=== PATIENT | female | born 1965 | race Caucasian/White ===

== ENCOUNTER 2016-11-06 19:46 | Emergency (ER) | payer OTHER ==
[2016-11-06 20:00] VITALS: BP 118/67
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
[2016-11-06] MEDS ORDERED: FLEXERIL PO ONE (21:50)
[2016-11-06] MEDS ORDERED: ROBAXIN PO ONE (21:54)
--- NOTE | 2016-11-07 09:38 | Diag Imaging Result Document ---
PROCEDURE NAME: CHEST-2 VIEWS - 11/06/2016 TWO VIEWS OF THE CHEST: FINDINGS: There is no evidence of acute cardiac or pulmonary disease. Compared to 07/31/2016, there is much better inspiration. IMPRESSION: No acute disease.
--- NOTE | 2016-11-07 09:39 | Diag Imaging Result Document ---
PROCEDURE NAME: SHOULDER-LEFT - 11/06/2016 LEFT SHOULDER, 3 VIEWS: FINDINGS: There is no evidence of fracture or dislocation. No other definite bony abnormalities are present. IMPRESSION: No acute disease.
--- NOTE | 2016-11-07 10:27 | Diag Imaging Result Document ---
PROCEDURE NAME: HEAD/C-SPINE W/O CONTRAST - 11/06/2016 CT OF THE HEAD WITHOUT CONTRAST: FINDINGS: There are calcifications in the internal carotid arteries bilaterally. There is no evidence of mass effect, bleed, or abnormal extra-axial fluid collection. Compared to the previous study of 04/10/2014, there has been no significant change in the appearance of the brain. IMPRESSION: Stable CT of the head. CT OF THE CERVICAL SPINE: FINDINGS: There is no evidence of acute fracture or subluxation. No acute abnormalities are demonstrated in the lung apices. There is no evidence of prevertebral soft tissue swelling, fracture, or subluxation, and the facets are well aligned bilaterally. IMPRESSION: No evidence of acute disease.
--- NOTE | 2016-11-07 10:28 | Diag Imaging Result Document ---
PROCEDURE NAME: LUMBAR SPINE W/O CONTRAST - 11/06/2016 CT OF THE LUMBAR SPINE: FINDINGS: There is degenerative disk disease at T9-10 with anterior osteophyte formation and particularly at the L5-S1 level where there is sclerosis of both endplate regions extending to the mid body of L5 and vacuum disk phenomenon with [id number] contact, posteriorly. There is also degenerative disease in the sacroiliac joints bilaterally. There is disk bulge at the L4-5 level. IMPRESSION: Degenerative disk changes and sacroiliac arthropathy. No evidence of acute bony disease.
== END 2016-11-06 22:03 | disposition home or self-care (01) ==
LOC: P.ED 19:46
DX: M79.1 Myalgia (principal); R51 Headache; M54.5 Low back pain; M25.512 Pain in left shoulder; R07.9 Chest pain, unspecified; R00.0 Tachycardia, unspecified; I10 Essential (primary) hypertension; K21.9 Gastro-esophageal reflux disease without esophagitis; E11.40 Type 2 diabetes mellitus with diabetic neuropathy, unspecified; Z85.820 Personal history of malignant melanoma of skin; Z72.0 Tobacco use; Z71.6 Tobacco abuse counseling; F32.9 Major depressive disorder, single episode, unspecified; M62.830 Muscle spasm of back; V43.52XA Car driver injured in collision with other type car in traffic accident, initial encounter; Z79.899 Other long term (current) drug therapy; Z79.4 Long term (current) use of insulin
CPT/HCPCS: 70450; 71020; 72125; 72131

== ENCOUNTER 2019-04-12 13:06 | Inpatient (IN) ==
[2019-04-12] MEDS ORDERED: ATIVAN IV ONE ×2 (13:14→15:48)
--- NOTE | 2019-04-12 13:19 | PROVIDER DOCUMENTATION ---
HPI-General Adult - General Chief Complaint: Low Blood Sugar Stated Complaint: hypoglycemia Time Seen by Provider: 04/12/19 13:06 Source: patient Allergies/Adverse Reactions: Patient Allergies Allergy/AdvReac Type Severity Reaction Status Date / Time levofloxacin [From Levaquin] Allergy Intermediate ITCHING Verified 04/12/19 13:52 promethazine HCl * AdvReac Intermediate AGITATION Verified 04/12/19 13:52 [From Phenergan] Home Medications: Home Medication List Medication Instructions Recorded Confirmed Last Taken Type Subcutaneous Insulin Pump [Insulin 1 each MC DIRECTED 05/19/14 06/05/18 01/30/17 19:00 History Pump] 1 EACH Losartan [Cozaar] 50 mg PO DAILY 07/31/16 06/05/18 01/30/17 19:00 History 50 MG Methocarbamol [Robaxin-750] 750 mg PO Q6-8H PRN PRN #20 tablet 11/06/16 06/05/18 01/30/17 19:00 Rx 750 MG Gabapentin 600 mg PO BID 01/31/17 06/05/18 01/30/17 19:00 History 600 MG Venlafaxine [Effexor] 75 mg PO DAILY 01/31/17 06/05/18 01/30/17 19:00 History 100 MG Acetaminophen [Tylenol] 650 mg PO Q4H PRN PRN tablet 11/20/17 06/05/18 Unknown Rx Amlodipine [Norvasc] 5 mg PO DAILY #30 tab 11/20/17 06/05/18 Unknown Rx Amoxicillin 875 mg PO Q12H #14 tab 06/08/18 Unknown Rx Doxycycline Hyclate [Morgidox] 100 mg PO Q12H #24 cap 06/08/18 Unknown Rx Pantoprazole [Protonix] 40 mg PO DAILY #60 tab 06/08/18 Unknown Rx - History of Present Illness -Gen Adult Nature of Presenting Problems: 53yof present to ER via EMS with c/o low blood sugar. According to EMS FSBS 25 initially on scene, pt was given glucagon and 1 amp D50w. Pt present to ER comba tive. FSBS 186 on arrival. Pt has insulin pump, which is now disconnected Location of Pain/Injury: reports: none - Diabetes Related Context Context: reports: low blood sugar, change in mental status Review of Systems - Adult - REVIEW OF SYSTEMS - ADULT ROS:: unobtainable per condition Constitutional: reports: no symptoms reported Eyes: reports: no symptoms reported Ears, Nose, Mouth & Throat: reports: no symptoms reported Cardiovascular: reports: no symptoms reported Respiratory: reports: no symptoms reported Gastrointestinal: reports: no symptoms reported Genitourinary: reports: no symptoms reported Musculoskeletal: reports: no symptoms reported Integumentary: reports: no symptoms reported Neurological: reports: no symptoms reported Psychiatric: reports: no symptoms reported Endocrine: reports: no symptoms reported Hematologic/Lymphatic: reports: no symptoms reported Allergic/Immunologic: reports: no symptoms reported All Other Systems: Reviewed and Negative Past History - Adult - PAST MEDICAL HISTORY-ADULT Review of Records: reports: Old Records Reviewed, Nursing Assessment Review, Medications Reviewed, Social history reviewed & non-contributory. Major Childhood Illnesses: reports: denies history Cardiovascular: reports: HTN Respiratory: reports: denies history Gastrointestinal: reports: GERD Obstetrical/Gynecological: reports: denies history Genitourinary: reports: denies history Musculoskeletal: reports: denies history Neurological: reports: other (neuropathy). denies: cancer/tumor, dementia, Franklin's Disease, meningitis, past injury Psychiatric: reports: depression Endocrine/Immune: reports: Diabetes Other Conditions: reports: other cancer (melanoma) - PRIOR SURGERIES/PROCEDURES Surgical/Procedure History: reports: appendectomy, cholecystectomy, hysterectomy , tonsillectomy, breast, other (bladder sling) - IMMUNIZATION STATUS Childhood Immunizations: See Nurse Assessment Flu Vaccine: See Nurse Assessment - FAMILY HISTORY Family History: reviewed, not pertinent Physical Exam-General - PHYSICAL EXAM-ADULT Exam Limited by: Pt combative and altered Initial Vital Signs Reviewed: Yes - CONSTITUTIONAL General Appearance: combative - EYES Eyes: PERRL/EOMI, pink conjunctivae - HEAD, EARS, NOSE, MOUTH & THROAT HENMT: other (dry mucous membranes) - NECK Neck: full range of motion, supple, normal inspection - RESPIRATORY Respiratory: lungs clear, normal breath sounds - CARDIOVASCULAR Cardiovascular: tachycardia - GASTROINTESTINAL (ABDOMEN) Abdominal Exam: normal bowel sounds, non tender, soft - MUSCULOSKELETAL Extremity: normal range of motion, normal inspection - SKIN Integumentary: normal color, warm/dry. negative: diaphoresis, ecchymosis, rash - NEUROLOGIC Neurologic: negative: facial droop - PSYCHIATRIC Psych/Mental Status: disoriented x 3, other (confused, combative) Progress - PLAN OF CARE/RESULTS Progress/Plan/Lab Results: Vital Signs - 8 hr 04/12/19 13:07 Pulse Rate 101 H Respiratory Rate 20 Blood Pressure 196/95 O2 Sat by Pulse Oximetry 96 Orders Category Date Time Status CT HEAD W/O CONTRAST [CT] Stat Exams 04/12/19 13:13 Ordered CBC WITH DIFF [HEME] Stat Lab 04/12/19 13:13 Uncollected COMPREHENSIVE METABOLIC PANEL [CHEM] Stat Lab 04/12/19 13:13 Uncollected TROPONIN T Stat Lab 04/12/19 13:[address] W/POSS RFLX CULT [URINALYSIS] Stat Lab 04/12/19 13:13 Uncollected URINE DRUG SCREEN PL Stat Lab 04/12/19 13:13 Uncollected Lorazepam [Ativan] Med 04/12/19 13:14 Discontinued 0.5 mg IV NOW ONE Result Diagrams: 04/12/19 13:30 04/12/19 13:30 - REASSESSMENT Reassessment #1 Time Reassessed: 13:20 (pt now relaxed. Will reassess patient) Reassessment #2 Time Reassessed: 13:32 (Pt still altered, slightly combative with arrousal. Will rule out other underlying causes.) Reassessment #3 Time Reassessed: 14:45 (Re-evaluated pt. Pt still very altered, unable to answer questions. Pts father at bedside now, states he saw pt at 0900 this morning and pt "seemed fine'. ) - XRAY 1 XRAY Study: Chest Impression: See EMR Report (FINDINGS: There is a suboptimal inspiratory result. Cardiomediastinal silhouette is within normal limits. The pulmonary vasculature is not congested. No infiltrate, effusion, or pneumothorax is appreciated. IMPRESSION: No acute cardiopulmonary abnormality is identified.) - CT/MRI 1 CT Study: Head Impression: See EMR Report (FINDINGS: No parenchymal hemorrhage. No epidural or subdural hematoma. No subarachnoid hemorrhage. No mass identified on this noncontrasted exam. No hydrocephalus. No skull fracture. IMPRESSION: No hemorrhage. Negative brain CT without contrast.) - CONSULTS/PCP/HOSPITALIST Notification #1 *Consult/PCP/Hospitalist*: Dr Sim Time Discussed: 15:39 Consult Disposition: Admit Departure - Departure Date of Disposition Decision: 04/12/19 Time of Disposition Decision: 15:39 DIAGNOSIS: Hypoglycemia Altered mental state Qualifiers: Altered mental status type: unspecified Qualified Code(s): R41.82 - Altered mental status, unspecified Disposition: ADMITTED INPATIENT 09 Certified Medical Emergency: Emergent Condition: Fair Referrals and Follow-Ups: None,PCP [Primary Care Provider] - - Critical Care Note This patient required my direct & personal management of CC.: No Attestation - Physician/ ASHLY Attestation Patient care was provided by Advanced Practice Provider:: Yes Advanced Practice Provider:: He Olivia Advanced Practice Provider documentation review:: The Mid-level provider documentation, treatment plan and medical decision making was reviewed by the physician who agrees with all treatment and medical decision making by the MLP. The physician spent face to face time with patient:: No Advanced Practice Provider documentation review:: Supervising physician onsite and consulted in the evaluation and care of this patient. The physician did not have a face to face encounter with the patient.
[2019-04-12] MEDS ORDERED: D50W SYRINGE IV ONE (13:22)
[2019-04-12 13:32] LABS: BILIRUBIN URINE NEGATIVE (NEGATIVE); BLOOD URINE NEGATIVE (NEGATIVE); CLARITY CLEAR (CLEAR); COLOR YELLOW; KETONE URINE NEGATIVE (NEGATIVE); LEUKOCYTES URINE NEGATIVE (NEGATIVE); NITRITE URINE NEGATIVE (NEGATIVE); PROTEIN URINE NEGATIVE (NEGATIVE); SP GRAVITY URINE 1.015; URINE BACTERIA NEGATIVE /HFP; URINE CAST NONE SEEN /LPF; URINE CRYSTAL NONE SEEN /HPF; URINE EPITHELIAL CELLS <10 /HPF (<10); URINE RBC <10 /HPF (<10); URINE SOURCE CATH; URINE WBC <10 /HPF (<10); URINE YEAST NONE SEEN /HPF; UROBILINOGEN URINE NORMAL
[2019-04-12 13:38] LABS: BASO# 0.03 X1000 (0.0-0.2); BASO% 0.5 % (0.0-0.8); EOS# 0.04 X1000 (0.0-0.7); EOS% 0.7 % (0.0-10.0); HEMATOCRIT 39.2 % (37.0-47.0); HEMOGLOBIN 13.2 g/dL (12.0-16.0); IMM GRAN# 0.01 X1000 (0.0-0.04); IMM GRAN% 0.2 % (0.0-0.5); LYMPH# 0.73 X1000 (1.2-3.4); LYMPH% 12.3 % (20.5-51.1); MCH 32.6 PG (27-31); MCHC 33.7 g/dL (33-37); MCV 96.8 FL (81-99); MONO# 0.34 X1000 (0.11-0.59); MONO% 5.7 % (1.7-9.3); MPV 10.2 FL (7.4-10.4); NEUT# 4.79 X1000 (1.4-6.5); NEUT% 80.6 % (42.2-75.2); PLT 243 X1000 (130-400); RBC 4.05 XMIL (4.2-5.4); RDW 13.7 % (11.5-14.5); WBC 5.94 X1000 (4.8-10.8)
[2019-04-12 13:41] LABS: UR AMPHETAMINES QUAL NONE DETECTED (NONE DETECT); UR BARBITUATES QUAL NONE DETECTED (NONE DETECT); UR BENZODIAZEPIN QUAL NONE DETECTED (NONE DETECT); UR CANNABINOIDS QUAL NONE DETECTED (NONE DETECT); UR COCAINE QUAL NONE DETECTED (NONE DETECT); UR METHADONE QUAL NONE DETECTED (NONE DETECT); UR METHAMPHETAMINE QUAL NONE DETECTED (NONE DETECT); UR OPIATES QUAL NONE DETECTED (NONE DETECT); UR OXYCODONE QUAL NONE DETECTED (NONE DETECT); UR PCP QUAL NONE DETECTED (NONE DETECT); UR PROPOXYPHENE QUAL NONE DETECTED (NONE DETECT); UR TCA QUAL NONE DETECTED (NONE DETECT)
[2019-04-12 13:55] LABS: AGAP 10; ALBUMIN 4.2 g/dL (3.5-5.0); ALKALINE PHOSPHATASE 159 U/L (32-104); BUN 11 mg/dL (8-22); CALCIUM 9.5 mg/dL (8.8-10.2); CHLORIDE 103 mmol/L (98-107); COSMO 287; CREATININE 0.6 mg/dL (0.5-0.9); ESTIMATED GFR > 60; GLUCOSE 250 mg/dL (70-104); GOT 24 U/L (10-30); GPT 22 U/L (10-36); POTASSIUM 4.1 mmol/L (3.5-5.1); SODIUM 140 mmol/L (136-145); TCO2 27 mmol/L (25-35); TOTAL PROTEIN 6.4 g/dL (6.3-8.3)
--- NOTE | 2019-04-12 14:04 | Diag Imaging Result Doc PS360 ---
EXAM: CT HEAD W/O CONTRAST HISTORY: aMS TECHNIQUE: CT head without contrast COMPARISON: 11/17/2017 FINDINGS: No parenchymal hemorrhage. No epidural or subdural hematoma. No subarachnoid hemorrhage. No mass identified on this noncontrasted exam. No hydrocephalus. No skull fracture. IMPRESSION: No hemorrhage. Negative brain CT without contrast. This exam was performed using automated exposure control, adjustment of mA or kV according to patient size, and/or use of iterative reconstruction technique. Electronically signed by Yandel Muñoz 04/12/2019 2:01 PM
--- NOTE | 2019-04-12 14:51 | Diag Imaging Result Doc PS360 ---
EXAM: CHEST-PORTABLE HISTORY: ams TECHNIQUE: Single view of the chest was performed portably. COMPARISON: 06/05/2018 FINDINGS: There is a suboptimal inspiratory result. Cardiomediastinal silhouette is within normal limits. The pulmonary vasculature is not congested. No infiltrate, effusion, or pneumothorax is appreciated. IMPRESSION: No acute cardiopulmonary abnormality is identified. Electronically signed by Gayathri Mcqueen 04/12/2019 2:48 PM
[2019-04-12] MEDS ORDERED: D5 1/2 NS 1,000 ML IV ONE (15:40)
[2019-04-12] MEDS ORDERED: ZOFRAN IV PRN (16:41)
[2019-04-12] MEDS ORDERED: D50W SYRINGE IV PRN (16:41)
[2019-04-12] MEDS ORDERED: TYLENOL PO PRN (16:41)
[2019-04-12] MEDS ORDERED: HALDOL ONE (18:10)
[2019-04-12] MEDS: HALDOL IM PRN (18:16)
[2019-04-12] MEDS ORDERED: HUMALOG (PARKWAY) ONE (18:20)
[2019-04-12] MEDS: HUMALOG (PARKWAY) SUBQ SCH ×2 (18:27→21:03)
--- NOTE | 2019-04-12 19:40 | HISTORY AND PHYSICAL ---
PRIMARY CARE PROVIDER: Lucio Latham MD CHIEF COMPLAINT: Lethargic and somewhat unresponsive, with low blood glucose levels. HISTORY OF PRESENT ILLNESS: Ms. Helen Awan is a 53-year-old female with a medical history of diabetes mellitus type 1, diagnosed in her mid to late 20s, who has had frequent admissions for either hypoglycemia or diabetic ketoacidosis. She currently wears an insulin pump, lives with her parents and is disabled. Apparently she missed dinner. She also missed breakfast, but according to the report from her father she was normal at 9 a.m. when he woke her up. Then by 12 she was near unresponsive. She was brought to the emergency department where she was found to have a blood glucose level of 25. She was given dextrose pushes along with taking her insulin pump off. Despite that, even when her blood glucose levels came up to normal, she was still showing signs of acute delirium or metabolic encephalopathy with agitation. She will be admitted to the ICU to monitor overnight, and will eventually need her insulin resumed. PAST MEDICAL HISTORY: 1. Diabetes mellitus type 1, diagnosed in mid to late 20s, with issues of DKA and noncompliance, on insulin pump. 2. Frequent urinary tract infections. 3. Diabetic neuropathy. 4. GERD. 5. Hypertension. 6. History of melanoma. 7. Lichen. PAST SURGICAL HISTORY: 1. Tonsillectomy and adenoidectomy. 2. Breast reduction. 3. Cholecystectomy. 4. Hysterectomy. 5. Lumbar surgery x2. SOCIAL HISTORY: A 1 to 8-ppai-lca-day smoker for years. Family at bedside denies that she has ever used alcohol or illicit drugs. She is disabled, lives with her parents, . She has one son in care home. Her daughter in her sleep from a seizure. FAMILY HISTORY: Daughter had seizures, mother has hypertension and arthritis. Father has diabetes mellitus type 2. ALLERGIES: Levaquin and Phenergan. MEDICATIONS: Home medications not yet verified, but she does wear insulin pump. REVIEW OF SYSTEMS: Unable to obtain, as she is lethargic from receiving Ativan. PHYSICAL EXAMINATION: VITAL SIGNS: Temperature 99.1 degrees, heart rate 94, respiratory rate 18, blood pressure 122/68, O2 saturation 97% on room air. GENERAL: Ms. Helen Awan is a 53-year-old female, who was originally agitated but is now sedated from Ativan. Will open her eyes, but goes right back to sleep. HEENT: Atraumatic, normocephalic. Pupils are equal and reactive. She will not wake up enough for extraocular movements. Mucous membranes are moist. NECK: Trachea midline. CARDIOVASCULAR: S1, S2. Regular rate and rhythm. No rubs, gallops or murmurs. No lower extremity edema. Dorsalis and radial pulses +2. Negative JVD or carotid bruits. PULMONARY: Clear to auscultation. Bilateral breath sounds. No accessory muscle use or work of breathing noted. GASTROINTESTINAL: Soft, nontender, nondistended. Positive bowel sounds x4. EXTREMITIES: She is curled up in bed, sleeping. She will not follow commands at this time. NEUROLOGIC: Again, sedated from Ativan. SKIN: Warm, dry, intact. There are some small skin wounds here and there on her hands. LABORATORY DATA: White blood cells 5000, hemoglobin 13, hematocrit 39, platelet count 243,000. Sodium 140, potassium 4.1, BUN 11, creatinine 0.6. Glucose 250, originally was 25 on admit. Calcium 9.5, bilirubin 0.30, AST 24, ALT 22. Troponin less than 0.01. Albumin is 4.2. Urinalysis negative but has 2+ glucose in it. Urine drug screen negative. DIAGNOSTIC DATA: Head CT: Negative. Chest x-ray: Negative. ASSESSMENT AND PLAN: 1. Symptomatic hypoglycemia secondary to poor p.o. intake and insulin pump, with type 1 diabetes mellitus. Unresponsive secondary to this initially, had a blood glucose level of 25. Dextrose was pushed, still had some confusion. Plan is going to be admitted with D5 half normal saline at 125. She will be transferred to the intensive care unit. 2. Metabolic encephalopathy secondary to blood glucose level changes. Agitation, with normal glucose levels. She was given Ativan. She is currently sedated from that. She will be monitored in intensive care unit. 3. History of hypertension. 4. Gastroesophageal reflux disease. 5. Diabetic neuropathy. Waiting for home medications to be reconciled. 6. Deep venous thrombosis prophylaxis. Sequential compression devices. Dictated by JONATHAN Mcconnell for Jatinder Murphy MD Addendum: Patient seen and examined by myself. Agree with JONATHAN note. It reflects my assessment and plan. Patient is being admitted to hospital for hypoglycemia and metabolic encephalopathy. Will send this patient to ICU for better monitoring. Will place her on D5NS and will monitor patient closely. cc: JONATHAN Mcconnell MD Kirk L. Jackson, MD MTDD
[2019-04-12] MEDS: ATIVAN IV PRN (19:45)
[2019-04-12] MEDS ORDERED: NS 500 ML IV ONE (23:21)
[2019-04-12] MEDS ORDERED: OFIRMEV 1000 MG/ISOTONIC SOLN 1,000 MG/100 ML BOTTLE IV PRN (23:23)
[2019-04-12] MEDS: ZOSYN 3.375 GM in NS 50 ML IV SCH (23:40)
[2019-04-12] MEDS: D5 NS 1,000 ML IV SCH (23:41)
[2019-04-12 23:58] LABS: HEMOGLOBIN A1C 10.9 % (4.8-6.0)
[2019-04-13] MEDS: ATIVAN IV PRN ×2 (01:02→14:17)
[2019-04-13] MEDS: HUMALOG (PARKWAY) SUBQ SCH ×6 (01:07→20:01)
[2019-04-13] MEDS: ZOSYN 3.375 GM in NS 50 ML IV SCH ×4 (04:30→23:04)
[2019-04-13] MEDS ORDERED: TYLENOL PO PRN (06:15)
[2019-04-13 06:46] LABS: BASO# 0.04 X1000 (0.0-0.2); BASO% 0.6 % (0.0-0.8); EOS# 0.12 X1000 (0.0-0.7); EOS% 1.8 % (0.0-10.0); HEMATOCRIT 35.9 % (37.0-47.0); HEMOGLOBIN 11.7 g/dL (12.0-16.0); LYMPH# 1.74 X1000 (1.2-3.4); LYMPH% 25.7 % (20.5-51.1); MCH 31.8 PG (27-31); MCHC 32.6 g/dL (33-37); MCV 97.6 FL (81-99); MONO# 0.58 X1000 (0.11-0.59); MONO% 8.6 % (1.7-9.3); MPV 10.6 FL (7.4-10.4); NEUT# 4.29 X1000 (1.4-6.5); NEUT% 63.3 % (42.2-75.2); PLT 226 X1000 (130-400); RBC 3.68 XMIL (4.2-5.4); RDW 13.9 % (11.5-14.5); WBC 6.77 X1000 (4.8-10.8)
[2019-04-13 07:59] LABS: AGAP 10; ALBUMIN 2.9 g/dL (3.5-5.0); ALKALINE PHOSPHATASE 123 U/L (32-104); BUN 11 mg/dL (8-22); CALCIUM 8.9 mg/dL (8.8-10.2); CHLORIDE 108 mmol/L (98-107); COSMO 279; CREATININE 0.5 mg/dL (0.5-0.9); ESTIMATED GFR > 60; GLUCOSE 107 mg/dL (70-104); GOT 22 U/L (10-30); GPT 15 U/L (10-36); MAGNESIUM 1.7 mg/dL (1.5-2.7); POTASSIUM 3.9 mmol/L (3.5-5.1); SODIUM 140 mmol/L (136-145); TCO2 22 mmol/L (25-35); TOTAL PROTEIN 5.3 g/dL (6.3-8.3)
--- NOTE | 2019-04-13 10:13 | PROGRESS NOTE ---
DATE: 04/13/2019 SUBJECTIVE: The patient continues to be lethargic and confused. Blood sugars are going up and down. They range in the range of 100 and 300. She is on D5 normal saline. OBJECTIVE: Vital Signs: Temperature 98.4 degrees, heart rate 76, respiratory rate 13, blood pressure 98/52, O2 saturation 94% on room air. General Examination: This is a chronically ill- appearing, 53-year-old, female, lying in bed, in no acute distress. Cardiovascular Examination: S1 and S2 heard. No murmurs, gallops, or rubs. Regular rate and rhythm. Respiratory Examination: Minimal coarse breath sounds in both pulmonary bases. Patient is not using any accessory muscles or having work of breathing. Abdomen: Soft, nontender to palpation. Bowel sounds present. No organomegaly. Extremities: No clubbing, cyanosis, or edema. Peripheral pulses present in both legs. Neurological Examination: The patient is still sleepy, somewhat confused, does follow basic commands. Laboratory Data: White cell count 6.77, hemoglobin 11.7, hematocrit 29.9, platelets 226,000. Glucose 107, hemoglobin A1c is 7.9. UDS is negative. ASSESSMENT AND PLAN: 1. Symptomatic hypoglycemia secondary to poor oral intake. The patient has been using an insulin pump but unfortunately, because sometimes she does not eat, she had some episodes of hypoglycemia. I think at this point, we are going to continue with D5 normal saline until her blood sugars stabilize. 2. Metabolic encephalopathy. I do not know exactly what is the reason why this patient continues to be confused. When she has been seen at admission, she was confused even though the blood sugar was back to normal. When she was brought to the hospital, at the scene, the blood sugar was 30 apparently, as per father who is at bedside. She reported that she has those episodes of hypoglycemia and she becomes confused. In any case, because she continues to be lethargic, I prefer to go ahead and order an MRI of the brain. Also, we will call neurology to see what else we can do for this lady. 3. Fever. I do not know if this patient, while she was unresponsive, she aspirated or not. In any case, I we will continue with the antibiotic that we have started; in this case, Zosyn 3.375 g intravenous every 6 hours, and we will do a CT of the chest to rule out any aspiration pneumonia. 4. Hypertension. Blood pressure is under control. We will continue with the same management. 5. Gastroesophageal reflux disease. Stable. 6. Diabetic neuropathy. Aware. We will continue home medications. 7. Disposition. We will continue to monitor this patient closely in the intensive care unit. cc: Jatinder Murphy MD
[2019-04-13] MEDS: HALDOL IM PRN (16:11)
--- NOTE | 2019-04-13 16:55 | Diag Imaging Result Doc PS360 ---
EXAM: CT THORAX W/O CONTRAST 04/13/2019 HISTORY: suspected pna TECHNIQUE: This exam was performed using automated exposure control, adjustment of mA or kV according to patient size, and/or use of iterative reconstruction technique. COMMENT: There is no evidence of acute pulmonary disease. There is some apparent patchy emphysematous change or air trapping in the lung bases. No consolidation is present and compared to 06/05/2018, the atelectatic changes which were present previously in the lower lobes are no longer present. There are no abnormal fluid collections. There is no evidence of significant adenopathy. The regional skeleton appears to be intact. IMPRESSION: No evidence of acute disease. Electronically signed by Tanner Escobar 04/13/2019 4:53 PM
[2019-04-13] MEDS: D5 NS 1,000 ML IV SCH (17:23)
--- NOTE | 2019-04-13 20:52 | CONSULTATION ---
DATE OF CONSULTATION: 04/13/2019 HISTORY OF PRESENT ILLNESS: Ms. Awan is [id number] and she was discovered poorly responsive by family. She has been more alert today. There was reported blood sugar 25 or 30. Blood sugars here have ranged 100-300. She has longstanding diabetes mellitus managed with insulin pump. She missed a meal or possibly 2 meals prior to this incident. Family at the bedside now, reports she has had very similar appearance in the past associated with extremes of high and low blood sugar. In retrospect, they believe she looked worse than current appearance with the last episode which may have been associated with high blood sugar. Each time, she has recovered over a few days. There is not history of previous diagnosed stroke. She has never had seizure. Other than extremes of blood sugar, she has not had encephalopathy. Family has noticed her to be a little bit forgetful, particularly to seem to have trouble paying attention at times in recent months. There has never been a focal neurologic feature to any of her prior episodes. Workup here includes noncontrast CT of the head showing nothing remarkable. Other than blood sugar, lab has been unremarkable. Urine drug screen was all negative. She has been afebrile. Systolic blood pressure was initially 190s, controlled 80s-130s in the last 24 hours. She received 1 dose of haloperidol 5 mg about 20 hours before my visit, and she received lorazepam total of 6 mg over a period of 16 hours or 18 hours prior to my visit. PAST MEDICAL HISTORY: Otherwise remarkable for hypertension. She smokes cigarettes. PHYSICAL EXAMINATION: Ms. Awan is asleep, easily waked with moderate stimulation. When stimulated, she remained awake and alert. She followed some simple commands. Her level of attention did fluctuate. She was not attentive to answering questions regarding orientation and cognitive function. She moved all limbs consistently well. Limb tone is symmetric. Plantar response is silent bilaterally. Reflexes are absent at the ankles. There is no definite tremor. She has full lateral eye movement. She counted fingers correctly in the left and right visual field. Facial motility is symmetric. Tongue is midline. She can hear. Head is unremarkable. Neck is supple without meningismus. IMPRESSION/RECOMMENDATIONS: Global encephalopathy. This is consistent with hypoglycemic encephalopathy. Clinically, this seems to be resolving predictably. Negative CT is reassuring. Family believes that she may have had MRI scan and I will check to see about that. If there was no surprise on MRI, I do not have any other suggestion from a neurology standpoint right now. If she does not continue improving, we might consider repeat imaging and we might consider EEG later. I would continue hydration, continue controlling blood sugar, continue trying to minimize sedatives, all as you are currently doing and hope she will improve. Thanks for asking Neurology to see Ms. Awan. cc: MD THAIS Torres III
[2019-04-14] MEDS: HUMALOG (PARKWAY) SUBQ SCH ×4 (01:04→14:01)
[2019-04-14] MEDS: D5 NS 1,000 ML IV SCH ×2 (04:22→05:48)
[2019-04-14] MEDS: ZOSYN 3.375 GM in NS 50 ML IV SCH (04:29)
--- NOTE | 2019-04-14 10:40 | Diag Imaging Result Doc PS360 ---
EXAM: MRI BRAIN W/WO CONTRAST HISTORY: metabolic encephalopathy TECHNIQUE: MRI brain with and without intravenous contrast. Axial, sagittal, and coronal images obtained in multiple sequences. These are followed by post contrasted axial and coronal images. COMPARISON: None. FINDINGS: No recent infarct. No significant microvascular ischemic changes. No mass or midline shift. No enhancing lesion on the post contrasted images. No hydrocephalus. No epidural or subdural fluid collection. Normal orbits. No sinus opacification. IMPRESSION: No abnormality identified. Electronically signed by Yandel Muñoz 04/14/2019 10:38 AM
[2019-04-14 17:05] VITALS: BP 135/79
--- NOTE | 2019-04-15 13:53 | DISCHARGE SUMMARY ---
ADMISSION DATE: 04/12/2019 DISCHARGE DATE: 04/14/2019 ADMISSION DIAGNOSES: 1. Symptomatic hypoglycemia secondary to poor p.o. intake and insulin pump with diabetes mellitus type 1. 2. Metabolic encephalopathy secondary to blood glucose level changes. 3. History of hypertension. 4. Gastroesophageal reflux disease. 5. Diabetic neuropathy. DISCHARGE DIAGNOSES: 1. Symptomatic hypoglycemia secondary to poor p.o. intake. 2. Metabolic encephalopathy. 3. Fever. Was placed on antibiotic due to questionable aspiration when unresponsive. 4. Hypertension. 5. Gastroesophageal reflux disease. 6. Diabetic neuropathy. CONSULTATIONS: Neurology due to the continued encephalopathy despite normal blood glucose levels. SURGERIES AND PROCEDURES: None. HOSPITAL COURSE: Ms Helen Awan is a 53-year-old, female with a medical history of diabetes mellitus type 1, who most recently was having poor p.o. intake. She had skipped dinner, skipped breakfast and then by lunchtime on day of admission, was unresponsive. She was brought in via ambulance, was given dextrose, woke up but woke up agitated, was placed on a D5 half normal saline drip. Continued to be agitated and confused. Was placed in the ICU for closer observation. Her home insulin pump was not used during this time. Blood glucose level stabilized out. She was placed back on a sliding scale insulin but despite all of that, still continued to have some agitation. Imaging revealed no signs of acute infarct. Neurology had no recommendations other than if it continues, she could have an EEG. As days went on, she became a little more clear and less agitated and will be discharged home on her home insulin pump. DISCHARGE VITAL SIGNS: Temperature 98 degrees, heart rate 72, respiratory rate 20, blood pressure 124/67, O2 saturation 99% on room air. LABORATORY DATA: This is back on the . White blood cells 6000, hemoglobin 11, hematocrit 35, platelet count 226,000. Sodium 140, potassium 3.9, BUN 11, creatinine 0.5. Glucose today was 295. Calcium 8.9, magnesium 1.7. Bilirubin 0.40, AST 22, ALT 15. Troponin negative. Albumin 2.9. Glucose in the urine. Urine drug screen was negative. PERTINENT IMAGING: On 04/12/2019, head CT negative. Chest x-ray, nothing acute. On 04/13/[address], nothing acute, no consolidation. On 04/14/2019, brain MRI, no abnormalities. DISCHARGE MEDICATIONS: 1. Cozaar 50 mg p.o. daily. 2. Effexor 75 mg p.o. twice daily. 3. Neurontin 600 mg p.o. twice daily. 4. Robaxin 750 mg p.o. twice daily. 5. Tylenol 650 mg p.o. every 4 hours p.r.n. 6. Insulin lispro 100 units per cartridge insulin pump. 7. Protonix 40 mg p.o. daily. DISCHARGE ACTIVITY: As tolerated. DISCHARGE DIET: Diabetic and not skipping meals. DISCHARGE PHYSICIAN FOLLOWUP: Dr. Hamlin, Dr. Lucio Latham. DISCHARGE INSTRUCTIONS: Include continuing to eat meals 3 times a day. Maybe small snacks. Any changes in consciousness or mentation, will need to check a blood glucose level. We are going to discontinue his insulin pump until she sees her Dr. Latham. DISCHARGE DISPOSITION: Home. Dictated by JONATHAN Mcconnell for Jatinder Murphy MD Addendum: Patient seen and examined by myself. Agree with JONATHAN note. It reflects my assessment and plan. Patient is being discharged in stable condition. Will be seen by his primary care doctor in a week. in this case Dr. Latham and Dr. Hamlin as well. cc: JONATHAN Mcconnell MD [facility]
== END 2019-04-14 17:13 | disposition home or self-care (01) | DRG 637 ==
LOC: EDSEX → P.ED 13:06 → SUATTDRO 17:43 → P.EDIPHOLD 17:43 → P.ICU 19:17
PROVIDERS: ATTEND Internal Medicine
CPT/HCPCS: 51702; 70450; 70553; 71010; 71045; 71250; 80053; 80104; 80301; 80305; 81001; 82948; 83036; 83735; 84484; 85025; 96365; 96366; 96372; 96375; 99285; A9270; A9579; G0431; G0434; G0477; J0131; J1630; J1815; J2060; J2543; J7040; J7042; XXXXX

== ENCOUNTER 2019-05-17 12:02 | Inpatient (IN) ==
[2019-05-17] MEDS ORDERED: NS 1,000 ML IV ONE ×3 (12:22→13:53)
[2019-05-17] MEDS ORDERED: HUMULIN R IV ONE (12:22)
[2019-05-17 12:35] LABS: BASO# 0.11 X1000 (0.0-0.2); BASO% 0.9 % (0.0-0.8); EOS# 0.19 X1000 (0.0-0.7); EOS% 1.6 % (0.0-10.0); HEMATOCRIT 47.3 % (37.0-47.0); HEMOGLOBIN 15.6 g/dL (12.0-16.0); IMM GRAN# 0.04 X1000 (0.0-0.04); IMM GRAN% 0.3 % (0.0-0.5); LYMPH# 2.06 X1000 (1.2-3.4); LYMPH% 17.8 % (20.5-51.1); MCH 31.6 PG (27-31); MCV 95.9 FL (81-99); MONO# 0.35 X1000 (0.11-0.59); MPV 11.9 FL (7.4-10.4); NEUT# 8.84 X1000 (1.4-6.5); NEUT% 76.4 % (42.2-75.2); PLT 303 X1000 (130-400); RBC 4.93 XMIL (4.2-5.4); RDW 13.1 % (11.5-14.5); WBC 11.59 X1000 (4.8-10.8)
[2019-05-17 12:43] LABS: ACETONE SERUM LARGE (NEGATIVE)
--- NOTE | 2019-05-17 12:43 | Diag Imaging Result Doc PS360 ---
EXAM: CHEST-1 VIEW 05/17/2019 HISTORY: dka TECHNIQUE: Erect AP portable at 1250 COMMENT: The inspiration is suboptimal. There is no evidence of acute cardiac or pulmonary disease. Compared to 04/12/2019 there has been no significant change. IMPRESSION: No evidence of acute disease. Electronically signed by Tanner Escobar 05/17/2019 12:41 PM
[2019-05-17 12:51] LABS: PHOSPHORUS 5.3 mg/dL (2.7-4.5)
[2019-05-17 12:56] LABS: BE -21.6 mmoll (-3.0-3.0); BLOOD TYPE ARTERIAL; METHB 1.1 % (0.0-1.5); O2(CT) 18.8 mL/dL (15.0-23.0); O2HB 94.4 % (95.0-99.0); PO2(98.6) 108 mmHg (60-100); SAMPLE BLOOD; SAO2 97.1 % (95.0-100.0); THB 14.1 g/dL (11.5-17.4)
[2019-05-17 12:59] LABS: MODALITY ROOM AIR; PCO2(98.6) 20 mmHg (35-45)
[2019-05-17] MEDS ORDERED: HUMULIN R 100 UNIT in NS 99 ML IV ONE (12:59)
[2019-05-17 13:00] LABS: ALLEN TEST YES
[2019-05-17 13:08] LABS: ALBUMIN 4.8 g/dL (3.5-5.0); CALCIUM 10.9 mg/dL (8.8-10.2); CREATININE 1.6 mg/dL (0.5-0.9); MAGNESIUM 2.1 mg/dL (1.5-2.7); TOTAL BILIRUBIN 0.4 mg/dL (0.20-1.00); TOTAL PROTEIN 7.3 g/dL (6.3-8.3)
[2019-05-17 13:11] LABS: POTASSIUM 6.2 mmol/L (3.5-5.1)
--- NOTE | 2019-05-17 13:34 | PROVIDER DOCUMENTATION ---
This chart was entered by Tanisha Rg Scribe, acting as scribe for Radhames Clifton MD. HPI-General Adult - General Chief Complaint: High Blood Sugar Stated Complaint: SUGAR PROBLEMS/VOMITING Time Seen by Provider: 05/17/19 12:14 Source: patient, family (), EMS Unable to obtain history due to:: altered Allergies/Adverse Reactions: Patient Allergies Allergy/AdvReac Type Severity Reaction Status Date / Time levofloxacin [From Levaquin] Allergy Intermediate ITCHING Verified 05/17/19 12:10 promethazine HCl * AdvReac Intermediate AGITATION Verified 05/17/19 12:10 [From Phenergan] Home Medications: Home Medication List Medication Instructions Recorded Confirmed Last Taken Type Losartan [Cozaar] 50 mg PO DAILY 07/31/16 05/17/19 01/30/17 19:00 History 50 MG Gabapentin 600 mg PO BID 01/31/17 05/17/19 01/30/17 19:00 History 600 MG Venlafaxine [Effexor] 75 mg PO BID 01/31/17 05/17/19 01/30/17 19:00 History 100 MG Pantoprazole [Protonix] 40 mg PO DAILY #60 tab 06/08/18 05/17/19 Unknown Rx Acetaminophen [Tylenol] 650 mg PO Q4H PRN PRN 04/12/19 05/17/19 Unknown History Methocarbamol [Robaxin-750] 750 mg PO BID 04/12/19 05/17/19 Unknown History Insulin Lispro [Humalog] 100 unit SQ DIRECTED #1 04/14/19 05/17/19 Unknown Rx cartridge - History of Present Illness -Gen Adult Nature of Presenting Problems: 53 yowf presents to the ed with c/o n/v and elevated BGL greater then 500. pt has insulin pump. sts pt has been lethargic and has had severe nausea and vomited x2. pt did recently see dr latham her pcp and given abx for otalgia. pt on exam can be woke and will answer questions but speech is slow and pt quickly goes back to sleep if not stimulated. pt has hx of DKA and on exam pt TM are obscured by cerumen Location of Pain/Injury: reports: abdomen Quality of Pain: reports: other (sever nausea unsure if cramping) Severity: reports: moderate Onset/Duration: reports: last night Timing: reports: still present Context/Activities at Onset: reports: light activity Modifying Factors: improves with: nothing Associated Symptoms: reports: fatigue, loss of appetite, malaise, nausea, vomit ing. denies: back/neck pain, chest pain, diarrhea Similar Symptoms Previously?: Yes Recently seen or treated by another doctor?: Yes (dr latham) Review of Systems - Adult - REVIEW OF SYSTEMS - ADULT ROS:: ROS per family () Constitutional: reports: see HPI, fatique. denies: fever Eyes: reports: no symptoms reported Ears, Nose, Mouth & Throat: reports: see HPI, ear pain Cardiovascular: denies: chest pain, syncope Respiratory: denies: cough, shortness of breath, wheezing Gastrointestinal: reports: see HPI, nausea, vomiting Genitourinary: reports: no symptoms reported Musculoskeletal: denies: back pain, neck pain Integumentary: reports: no symptoms reported Neurological: denies: dizziness/vertigo, headache/migraines Psychiatric: reports: no symptoms reported Endocrine: reports: no symptoms reported Hematologic/Lymphatic: reports: no symptoms reported Allergic/Immunologic: reports: no symptoms reported All Other Systems: Reviewed and Negative Past History - Adult - PAST MEDICAL HISTORY-ADULT Review of Records: reports: Old Records Reviewed, Nursing Assessment Review, Medications Reviewed, Social history reviewed & non-contributory. Major Childhood Illnesses: reports: denies history Cardiovascular: reports: HTN Respiratory: reports: denies history Gastrointestinal: reports: GERD Obstetrical/Gynecological: reports: denies history Genitourinary: reports: denies history Musculoskeletal: reports: denies history Neurological: reports: other (neuropathy). denies: cancer/tumor, dementia, [place]'s Disease, meningitis, past injury Psychiatric: reports: depression Endocrine/Immune: reports: Diabetes Diabetes controlled by:: Insulin Dependent Other Conditions: reports: other cancer (melanoma) - PRIOR SURGERIES/PROCEDURES Surgical/Procedure History: reports: appendectomy, cholecystectomy, hysterectomy , tonsillectomy, breast, other (bladder sling) - IMMUNIZATION STATUS Childhood Immunizations: See Nurse Assessment Flu Vaccine: See Nurse Assessment - FAMILY HISTORY Family History: reviewed, not pertinent - SOCIAL HISTORY Smoking: cigarettes, greater than 1 pack/day Provider spent 3-5 mins advising pt. on dangers of tobacco.: Discussed manners to quit use, and f/u contacts for add'l counseling. Substance Use: alcohol Alcohol Use Frequency: occasionally Living Situation: family Physical Exam-General - PHYSICAL EXAM-ADULT Initial Vital Signs Reviewed: Yes (BP-78/58) - CONSTITUTIONAL General Appearance: lethargic, slow to respond - EYES Eyes: PERRL/EOMI - HEAD, EARS, NOSE, MOUTH & THROAT HENMT: moist mucous membranes, TM obscurred by cerumen (bilateral) - NECK Neck: normal inspection - RESPIRATORY Respiratory: chest non-tender, lungs clear, normal breath sounds - CARDIOVASCULAR Cardiovascular: normal peripheral pulses, regular rate, rhythm, systolic murmur - CHEST (BREASTS) Chest/Breast: deferred - GASTROINTESTINAL (ABDOMEN) Abdominal Exam: normal bowel sounds, soft, other (pt has insulin pump on lower abdomen) - GENITOURINARY Female Genitalia/Pelvic Exam: deferred Rectal Exam: deferred Hemoccult Exam: deferred - LYMPHATIC Lymphatic: no adenopathy - MUSCULOSKELETAL Extremity: normal capillary refill, pelvis stable - SKIN Integumentary: normal color, diaphoresis - PSYCHIATRIC Psych/Mental Status: disheveled Progress - PLAN OF CARE/RESULTS Progress/Plan/Lab Results: Vital Signs - 8 hr 05/17/19 12:03 Temperature 97.4 F L Pulse Rate 93 H Respiratory Rate 16 Blood Pressure 78/58 O2 Sat by Pulse Oximetry 96 Orders Category Date Time Status Finger Stick Blood Sugar (ED) DIRECTED Care 05/17/19 12:15 Active Nursing- Obtain EKG ONCE Care 05/17/19 12:20 Active CHEST-1 VIEW [RAD] Stat Exams 05/17/19 12:20 Ordered ABG [RESP] Routine Lab 05/17/19 12:20 Ordered ACETONE SERUM [CHEM] Stat Lab 05/17/19 12:20 Ordered CBC WITH ELECTRONIC DIFF [HEME] Stat Lab 05/17/19 12:24 Ordered COMPREHENSIVE METABOLIC PANEL [CHEM] Stat Lab 05/17/19 12:24 Ordered MAGNESIUM [CHEM] Stat Lab 05/17/19 12:24 Ordered PHOSPHORUS [CHEM] Stat Lab 05/17/19 12:20 Ordered TROPONIN T Stat Lab 05/17/19 12:[address] W/POSS RFLX CULT [URINALYSIS] Stat Lab 05/17/19 12:20 Uncollected 0.9% Sodium Chloride Inj [Ns] 1,000 ml Med 05/17/19 12:22 Active IV 999 mls/hr Insulin Human Regular [Humulin R] Med 05/17/19 12:22 Discontinued 10 unit IV NOW ONE EKG [EKG] Stat Ther 05/17/19 12:20 Ordered Result Diagrams: 05/17/19 12:24 05/17/19 12:24 - REASSESSMENT Reassessment #1 Time Reassessed: 12:59 (dr clifton at bedside ) Status: improving Reassessment Comment: pt sts feels some better and bp is improved Reassessment #2 Time Reassessed: 14:32 (pt is resting) Status: unchanged - EKG 1 Time of EKG reading by physician:: 13:17 EKG Read and Signed by:: Radhames Clifton EKG Interpretation (*Must complete 3 of following elements*): Normal Rate: 95 Rhythm: nsr [place]: normal QRS: normal [place] Interval: normal ST Wave: normal - XRAY 1 XRAY: Bilateral XRAY Study: Chest Impression: See EMR Report (EXAM: CHEST-1 VIEW 05/17/2019 HISTORY: dka TECHNIQUE: Erect AP portable at 1250 COMMENT: The inspiration is suboptimal. There is no evidence of acute cardiac or pulmonary disease. Compared to 04/12/2019 there has been no significant change. IMPRESSION: No evidence of acute disease. Electronically signed by Tanner Escobar 05/17/2019 12:41 PM 05/17/19 1241 Interpreting Physician: Tanner Escobar MD Dictated Date/Time: 05/17/19 1240 cc: Radhames Clifton MD; Lucio Latham MD) - CONSULTS/PCP/HOSPITALIST Notification #1 *Consult/PCP/Hospitalist*: hospitalist dr mckeon Time Discussed: 14:38 Consult Disposition: Admit Departure - Departure Date of Disposition Decision: 05/17/19 Time of Disposition Decision: 14:46 DIAGNOSIS: Tobacco use disorder, Hyperkalemia DKA (diabetic ketoacidoses) Qualifiers: Diabetes mellitus complication detail: without coma Disposition: ADMITTED INPATIENT 09 Certified Medical Emergency: Emergent Condition: Serious Referrals and Follow-Ups: Lucio Latham MD [Primary Care Provider] - - Critical Care Note This patient required my direct & personal management of CC.: Yes Total Time (mins): 38 Critical Care Statement: This patient required my direct personal management to treat or rule out processes, the absence of which, could potentiallly result in sudden, clinically significant life or limb threatening deterioration. Attestation - Physician/ ASHLY Attestation Patient care was provided by Advanced Practice Provider:: No The physician spent face to face time with patient:: Yes Advanced Practice Provider documentation review:: Supervising physician onsite and consulted in the evaluation and care of this patient. The physician did have a face to face encounter with the patient. This chart was documented by the indicated scribe, (Tanisha Rg Scribe) and accurately reflects the services I performed and decisions made by me, Radhames Clifton MD, as attested by the provider's signature.
[2019-05-17] MEDS ORDERED: HUMULIN R 100 UNIT in NS 100 ML IV SCH ×2 (14:00→16:37)
--- NOTE | 2019-05-17 14:36 | EKG Report ---
Test Performed on : 05/17/2019 1:17:29 PM Test Reason : dka Blood Pressure : / mmHG Vent. Rate : 095 BPM Atrial Rate : 095 BPM P-R Int : 120 ms QRS Dur : 076 ms QT Int : 374 ms P-R-T Axes : 054 -01 063 degrees QTc Int : 469 ms Normal sinus rhythm. Normal ECG When compared with ECG of 17-NOV-2017 07:27, Previous ECG has undetermined rhythm, needs review Questionable change in QRS duration Unconfirmed Result
[2019-05-17 14:58] LABS: COLOR YELLOW; URINE BACTERIA NEGATIVE /HFP; URINE EPITHELIAL CELLS <10 /HPF (<10); URINE RBC <10 /HPF (<10); URINE SOURCE CATH; URINE WBC <10 /HPF (<10)
[2019-05-17 15:00] LABS: LEUKOCYTES URINE NEGATIVE (NEGATIVE)
[2019-05-17 15:34] LABS: BILIRUBIN URINE NEGATIVE (NEGATIVE); BLOOD URINE NEGATIVE (NEGATIVE); KETONE URINE 3+(Large) mg/dL (NEGATIVE); NITRITE URINE NEGATIVE (NEGATIVE); PROTEIN URINE NEGATIVE (NEGATIVE); SP GRAVITY URINE 1.015; UROBILINOGEN URINE NORMAL
[2019-05-17 15:35] LABS: CLARITY CLEAR (CLEAR)
[2019-05-17 15:59] LABS: URINE CAST NONE SEEN /LPF; URINE CRYSTAL NONE SEEN /HPF; URINE YEAST NONE SEEN /HPF
[2019-05-17] MEDS ORDERED: MAGNESIUM SULFATE 2 GM/S.W.I. 2 GM/50 ML IVPB IV PRN (16:37)
[2019-05-17] MEDS ORDERED: ZOFRAN IV PRN (16:37)
[2019-05-17] MEDS ORDERED: TYLENOL PR PRN (16:37)
[2019-05-17] MEDS ORDERED: SODIUM BICARBONATE 8.4% 100 MEQ in STERILE WATER INJ. 500 ML IV PRN (16:37)
[2019-05-17] MEDS ORDERED: COMPAZINE IV PRN (16:37)
[2019-05-17] MEDS ORDERED: POTASSIUM CHLORIDE 20% LIQUID PO PRN (16:37)
[2019-05-17] MEDS ORDERED: POTASSIUM CHLORIDE 10% LIQUID PO PRN (16:37)
[2019-05-17] MEDS ORDERED: SODIUM PHOSPHATE 30 MMOL in D5W 250 ML IV PRN (16:37)
[2019-05-17] MEDS ORDERED: D50W SYRINGE IV PRN (16:37)
[2019-05-17] MEDS ORDERED: POTASSIUM CHLORIDE 40 MEQ in NS 250 ML IV PRN (16:37)
[2019-05-17] MEDS ORDERED: TYLENOL PO PRN (16:37)
[2019-05-17] MEDS: NS 1,000 ML IV SCH (17:59)
[2019-05-17 19:05] LABS: CALCIUM 8.8 mg/dL (8.8-10.2); CREATININE 1.1 mg/dL (0.5-0.9); PHOSPHORUS 2.5 mg/dL (2.7-4.5); POTASSIUM 4.4 mmol/L (3.5-5.1)
[2019-05-17] MEDS: POTASSIUM CHLORIDE 20 MEQ/SWI 20 MEQ/100 ML IVPB IV PRN (19:36)
--- NOTE | 2019-05-17 19:44 | HISTORY AND PHYSICAL ---
PRIMARY CARE PROVIDER: Dr. Lucio Latham. CHIEF COMPLAINT: Not feeling well. HISTORY OF PRESENT ILLNESS: Ms. Awan is a 53-year-old female well known to our service with a past medical history of diabetes mellitus type 1, frequent admissions for DKA and medical noncompliance, others, frequent urinary tract infections, diabetic neuropathy, GERD, hypertension, history of melanoma on the back. She reported for the past 2 days her blood glucoses have been up and down with severe nausea and vomiting. She had recently been placed on Keflex by Dr. Latham for possible abscess under her right axilla. Actually, she stated they did not know if it was an abscess or a swollen lymph node and she was told to leave it alone, as well as otalgia. Workup in the ED revealed that she was in DKA. She was initiated on the DKA protocol and will be moved to the ICU for further evaluation and treatment. PAST MEDICAL HISTORY: 1. Diabetes mellitus type 1, diagnosed in her late 20s. Issues with noncompliance and several admissions for DKAs. She does have an insulin pump. It is now off. Her father is going to take that home. 2. Frequent urinary tract infections. 3. Diabetic neuropathy. 4. Gastroesophageal reflux disease. 5. Hypertension. 6. History of melanoma. 7. [place]. PAST SURGICAL HISTORY: 1. Tonsillectomy and adenoidectomy. 2. Breast reduction. 3. Cholecystectomy. 4. Hysterectomy. 5. Lumbar surgery x2. 6. Melanoma on the back removed. SOCIAL HISTORY: 1 to 2 pack per day smoker for several years. No alcohol or illicit drug use. She is disabled. Lives with her parents. She is a . She has a son who is in intermediate. Daughter in her sleep from a seizure. FAMILY HISTORY: Daughter with seizures. Mother with hypertension and arthritis. Father has diabetes mellitus type 2. ALLERGIES: Levaquin and Phenergan. HOME MEDICATIONS: 1. Cozaar 50 mg p.o. daily. 2. Effexor 75 mg p.o. b.i.d. 3. Gabapentin 600 mg p.o. b.i.d. 4. Robaxin 750 mg p.o. b.i.d. 5. Tylenol 650 mg p.o. q.4 hours p.r.n. pain. 6. Humalog 100 units subcutaneously as directed. 7. Protonix 40 mg p.o. daily. REVIEW OF SYSTEMS: A 12 point review of systems is completely negative except for those mentioned in HPI. PHYSICAL EXAMINATION: VITAL SIGNS: Temperature is 97.7 degrees, heart rate 91, respirations 17, blood pressure 112/60, O2 is 95% on room air. GENERAL: Ms. Awan is a 53-year-old female who is lying on the bed, who appears ill, but in no acute distress. HEENT: Atraumatic, normocephalic. PERRL. NECK: Supple. Trachea midline. CV: S1, S2 appreciated with a loud murmur. RESPIRATORY: Lung sounds clear bilaterally. GI: Abdomen soft, nontender, nondistended. Positive bowel sounds in four quadrants. EXTREMITIES: Negative for edema. Bilateral pedal pulses are palpable. NEUROLOGIC: No focal deficits noted. The patient was awake, alert, oriented, following commands, and answered all questions appropriately. DIAGNOSTIC DATA: Chest x-ray: No evidence of acute disease. EKG: Normal sinus rhythm at 95 beats per minute. LABORATORY DATA: White count 11, hemoglobin and hematocrit 15 and 43, platelet count is 303,000. ABGs: pH 7.1, CO2 20, pO2 108, base excess -21.6, bicarb is 8. Sodium 129, potassium 6.2, BUN 26, creatinine 1.6, blood glucose 659, calcium 10, phosphorus 5.3, magnesium 2.1. Urinalysis: 3+ glucose, acetone level large. Anion gap is 35. ASSESSMENT AND PLAN: 1. Diabetic ketoacidosis in a patient with type 1 diabetes and noncompliance. The patient was wearing an insulin pump that has since been taken off and been taken home by her father. She has been initiated on the diabetic ketoacidosis protocol as usual fashion. 2. Frequent urinary tract infections. Aware. 3. Diabetic neuropathy. 4. Gastroesophageal reflux disease. 5. Hypertension. 6. History of melanoma. 7. Acute kidney injury secondary to dehydration. We will continue with aggressive intravenous hydration. 8. Further recommendations to follow physician evaluation, laboratory and diagnostic data. Dictated by JONATHAN Riddle for Philip March MD cc: Philip March MD
[2019-05-17] MEDS: D5 NS 1,000 ML IV PRN (20:23)
[2019-05-17 22:56] LABS: CALCIUM 8.6 mg/dL (8.8-10.2); CREATININE 1.1 mg/dL (0.5-0.9)
[2019-05-18] MEDS: NS 1,000 ML IV SCH ×2 (00:05→08:53)
--- NOTE | 2019-05-18 00:26 | HISTORY AND PHYSICAL ---
ADDENDUM: Patient seen and examined by myself. Full note dictated and discussed with nurse practitioner. The patient presented to the hospital, noting that her insulin pump had apparently quit functioning correctly. Her blood sugars were markedly elevated. It was felt that she was in DKA in the ER. She will be admitted to the ICU, placed on DKA protocol. Currently, she is awake and alert. She is in no respiratory distress, but is obviously ill appearing. cc: Philip March MD
[2019-05-18 03:08] LABS: POTASSIUM 4.2 mmol/L (3.5-5.1)
[2019-05-18 03:09] LABS: PHOSPHORUS 1.9 mg/dL (2.7-4.5)
[2019-05-18] MEDS: POTASSIUM CHLORIDE 20 MEQ/SWI 20 MEQ/100 ML IVPB IV PRN (04:07)
[2019-05-18] MEDS: D5 NS 1,000 ML IV PRN (04:11)
[2019-05-18 06:56] LABS: AGAP 9; BUN 11 mg/dL (8-22); CALCIUM 9.2 mg/dL (8.8-10.2); CHLORIDE 107 mmol/L (98-107); COSMO 281; CREATININE 0.9 mg/dL (0.5-0.9); ESTIMATED GFR > 60; GLUCOSE 141 mg/dL (70-104); PHOSPHORUS 1.9 mg/dL (2.7-4.5); POTASSIUM 4.7 mmol/L (3.5-5.1); SODIUM 140 mmol/L (136-145); TCO2 24 mmol/L (25-35)
--- NOTE | 2019-05-18 08:21 | Diag Imaging Result Doc PS360 ---
EXAM: CHEST-PORTABLE - 05/18/2019 HISTORY: dyspnea TECHNIQUE: Portable chest COMPARISON: 05/17/2019 FINDINGS: Heart size is normal. The lungs appear essentially clear. There is no pleural effusion or pneumothorax identified. IMPRESSION: No evidence of acute disease. Electronically signed by Zeke Niño 05/18/2019 8:19 AM
[2019-05-18] MEDS ORDERED: LANTUS INSULIN SUBQ SCH (09:00)
[2019-05-18 14:54] VITALS: BP 144/76
--- NOTE | 2019-05-19 08:25 | DISCHARGE SUMMARY ---
ADMISSION DATE: 05/17/2019 DISCHARGE DATE: 05/18/2019 CONSULTATIONS: None. PERTINENT PROCEDURES: Initial chest x-ray, no evidence of acute disease. Follow-up chest x-ray, no evidence of acute disease. DISCHARGE DIAGNOSES: 1. Diabetic ketoacidosis, resolved, in a patient with type 1 diabetes and noncompliance. 2. Frequent urinary tract infections. Aware. 3. Diabetic neuropathy. 4. Gastroesophageal reflux disease. 5. Hypertension. 6. History of melanoma on the back. 7. Acute kidney injury secondary to dehydration, resolved. HISTORY OF PRESENT ILLNESS AND HOSPITAL COURSE: Ms Awan is a 53-year-old female, well known to our service for admissions for DKA. She is a type 1 diabetic with an insulin pump. She is also known for medical noncompliance, frequent urinary tract infection, diabetic neuropathy, GERD, hypertension, history of melanoma on the back with removal. She reported to the ED after having 2 days of blood glucose levels that had been up and down with severe nausea and vomiting. She had recently been placed on Keflex by Dr. Latham for a possible abscess under her right axilla although they were unsure if it was an abscess or just a swollen lymph node and was told to leave it alone, as well as otalgia. Workup in the ED revealed that she was in DKA. She was initiated on the DKA protocol and admitted to the ICU overnight for further evaluation and treatment. Her DKA has now resolved. She is feeling much better. She has tolerated a diabetic diet and will be discharged home today on 10 units of Lantus daily. She has been told to hold off on her insulin pump until she can get back up with either her sap portal architect or Dr. Latham, whoever prescribes her insulin. She is to take all her medications as prescribed. VITAL SIGNS: At time of discharge, temperature is 97.5 degrees, heart rate 94, respirations 17, blood pressure 144/76, O2 is 99% on room air. DISCHARGE DIET: Diabetic. DISCHARGE MEDICATIONS: 1. Cozaar 50 mg p.o. daily. 2. Effexor 75 mg p.o. b.i.d. 3. Gabapentin 600 mg p.o. b.i.d. 4. Robaxin 750, 100 mg p.o. b.i.d. 5. Tylenol 650 mg p.o. q.4 hours p.r.n. 6. Lantus 10 units subcutaneously daily. 7. Protonix 40 mg p.o. daily. FOLLOWUP: Ms. Awan is being discharged back home with self care. She is to take her Lantus as prescribed. She has been told to hold off on her insulin pump until she follows up with her regular care provider for further instructions. She is to take all other medications as prescribed. She can return to the ED or call 911 for any worsening of symptoms. Dictated by JONATHAN Riddle for Philip March MD cc: MD Lucio Gillespie MD
--- NOTE | 2019-05-19 20:56 | DISCHARGE SUMMARY ---
ADMISSION DATE: 05/17/2019 DISCHARGE DATE: 05/18/2019 The patient notes that she is feeling a lot better. Denies any fevers, chills, cough, congestion. Blood sugars are improved. We will discharge her home. We will let her follow up outpatient with her diabetic doctor to evaluate her pump. She will take Lantus until she can make that appointment. cc: Philip March MD
== END 2019-05-18 15:28 | disposition home or self-care (01) | DRG 638 ==
LOC: P.ICU 12:02 → P.ED 12:02 → OBSVTOIN 12:03
PROVIDERS: ATTEND Family Medicine

== ENCOUNTER 2019-06-06 15:03 | Inpatient (IN) ==
[2019-06-06] MEDS ORDERED: NS 1,000 ML IV ONE (15:23)
[2019-06-06 16:07] LABS: BLOOD TYPE ARTERIAL; SAMPLE BLOOD
[2019-06-06 16:08] LABS: BE -17.7 mmoll (-3.0-3.0); METHB 0.7 % (0.0-1.5); O2(CT) 19.6 mL/dL (15.0-23.0); O2HB 93.4 % (95.0-99.0); PCO2(98.6) 21 mmHg (35-45); PO2(98.6) 95 mmHg (60-100); SAO2 96.3 % (95.0-100.0); THB 14.9 g/dL (11.5-17.4)
[2019-06-06 16:09] LABS: MODALITY ROOM AIR
[2019-06-06 16:10] LABS: ALLEN TEST NO
[2019-06-06 16:16] LABS: HEMATOCRIT 44.9 % (37.0-47.0); HEMOGLOBIN 14.6 g/dL (12.0-16.0); MCH 32.1 PG (27-31); MCHC 32.5 g/dL (33-37); MCV 98.7 FL (81-99); MPV 11.9 FL (7.4-10.4); RBC 4.55 XMIL (4.2-5.4); RDW 13.5 % (11.5-14.5); WBC 13.34 X1000 (4.8-10.8)
[2019-06-06] MEDS ORDERED: HUMULIN R IV ONE ×2 (16:27→17:13)
[2019-06-06 16:36] LABS: ALBUMIN 4.7 g/dL (3.5-5.0); CALCIUM 11.3 mg/dL (8.8-10.2); MAGNESIUM 2.1 mg/dL (1.5-2.7); TOTAL BILIRUBIN 0.5 mg/dL (0.20-1.00)
[2019-06-06 16:38] LABS: AMYLASE 74 U/L (20-200); PHOSPHORUS 5.7 mg/dL (2.7-4.5); POTASSIUM 5.9 mmol/L (3.5-5.1)
[2019-06-06 16:49] LABS: ACETONE SERUM SMALL (NEGATIVE)
[2019-06-06 17:03] LABS: INR 0.87; PROTIME 12.3 Seconds (11.0-16.0)
[2019-06-06 17:04] LABS: PTT 26.9 Seconds (22.3-41.8)
[2019-06-06] MEDS ORDERED: POTASSIUM CHLORIDE 20 MEQ/SWI 20 MEQ/100 ML IVPB IV PRN (17:11)
[2019-06-06] MEDS ORDERED: SODIUM BICARBONATE 8.4% 100 MEQ in STERILE WATER INJ. 500 ML IV PRN (17:11)
[2019-06-06] MEDS ORDERED: POTASSIUM CHLORIDE 40 MEQ in NS 250 ML IV PRN ×2 (17:11→17:13)
[2019-06-06] MEDS ORDERED: COMPAZINE IV PRN ×2 (17:11→17:13)
[2019-06-06] MEDS ORDERED: TYLENOL PO PRN ×2 (17:11→17:13)
[2019-06-06] MEDS ORDERED: D5 NS 1,000 ML IV PRN (17:11)
[2019-06-06] MEDS ORDERED: ZOFRAN IV PRN ×2 (17:11→17:13)
[2019-06-06] MEDS ORDERED: D50W SYRINGE IV PRN ×2 (17:11→17:13)
[2019-06-06] MEDS ORDERED: MAGNESIUM SULFATE 2 GM/S.W.I. 2 GM/50 ML IVPB IV PRN ×2 (17:11→17:13)
[2019-06-06] MEDS ORDERED: SODIUM PHOSPHATE 30 MMOL in D5W 250 ML IV PRN ×2 (17:11→17:13)
[2019-06-06] MEDS ORDERED: POTASSIUM CHLORIDE 20% LIQUID PO PRN (17:11)
[2019-06-06] MEDS ORDERED: POTASSIUM CHLORIDE 10 MEQ in D5 NS 1,000 ML IV PRN (17:13)
[2019-06-06 17:14] LABS: BILIRUBIN URINE NEGATIVE (NEGATIVE); BLOOD URINE NEGATIVE (NEGATIVE); CLARITY SL. CLOUDY (CLEAR); COLOR YELLOW; KETONE URINE 3+(Large) mg/dL (NEGATIVE); LEUKOCYTES URINE NEGATIVE (NEGATIVE); NITRITE URINE NEGATIVE (NEGATIVE); PROTEIN URINE NEGATIVE (NEGATIVE); SP GRAVITY URINE 1.015; UROBILINOGEN URINE NORMAL
[2019-06-06] MEDS ORDERED: HUMULIN R (PARKWAY) 100 UNITS in NS 100 ML IV SCH (17:15)
[2019-06-06] MEDS ORDERED: HUMULIN R 100 UNIT in NS 100 ML IV SCH ×2 (17:15→17:30)
[2019-06-06] MEDS: NS 1,000 ML IV SCH ×4 (17:15→20:30)
[2019-06-06 17:19] LABS: UR AMPHETAMINES QUAL NONE DETECTED (NONE DETECT); UR BARBITUATES QUAL NONE DETECTED (NONE DETECT); UR BENZODIAZEPIN QUAL NONE DETECTED (NONE DETECT); UR CANNABINOIDS QUAL NONE DETECTED (NONE DETECT); UR COCAINE QUAL NONE DETECTED (NONE DETECT); UR METHADONE QUAL NONE DETECTED (NONE DETECT); UR METHAMPHETAMINE QUAL NONE DETECTED (NONE DETECT); UR OPIATES QUAL NONE DETECTED (NONE DETECT); UR OXYCODONE QUAL NONE DETECTED (NONE DETECT); UR PCP QUAL NONE DETECTED (NONE DETECT); UR PROPOXYPHENE QUAL NONE DETECTED (NONE DETECT); UR TCA QUAL NONE DETECTED (NONE DETECT); URINE EPITHELIAL CELLS >10 /HPF (<10); URINE RBC <10 /HPF (<10); URINE SOURCE CLEAN CATCH; URINE WBC <10 /HPF (<10)
[2019-06-06 17:20] LABS: URINE BACTERIA 2+ /HFP; URINE CAST NONE SEEN /LPF; URINE CRYSTAL NONE SEEN /HPF; URINE YEAST NONE SEEN /HPF
[2019-06-06] MEDS ORDERED: HUMULIN R (PARKWAY) ONE (17:24)
[2019-06-06 17:27] LABS: CK PROFILE 38 U/L (24-173)
--- NOTE | 2019-06-06 17:32 | Diag Imaging Result Doc PS360 ---
EXAM: CHEST-1 VIEW 06/06/2019 HISTORY: r/o sepsis TECHNIQUE: AP portable erect at 1717 COMMENT: There is no evidence of acute cardiac or pulmonary disease. Compared to 05/18/2019 there has been no significant change. IMPRESSION: No acute disease. Electronically signed by Tanner Escobar 06/06/2019 5:30 PM
[2019-06-06] MEDS ORDERED: POTASSIUM CHLORIDE 10 MEQ in NS 1,000 ML IV SCH (18:00)
[2019-06-06 18:01] LABS: HEMOGLOBIN A1C 12.9 % (4.8-6.0)
[2019-06-06 18:13] LABS: CALCIUM 10.4 mg/dL (8.8-10.2); CREATININE 1.7 mg/dL (0.5-0.9); PHOSPHORUS 4.8 mg/dL (2.7-4.5)
[2019-06-06 18:14] LABS: POTASSIUM 6.3 mmol/L (3.5-5.1)
--- NOTE | 2019-06-06 18:48 | HISTORY AND PHYSICAL ---
CHIEF COMPLAINT: High blood sugar. HISTORY OF PRESENT ILLNESS: This is a 53-year-old, female, well known to our service for recurrent admissions for DKA. Actually, she was admitted last 20 days ago for DKA. At this time, she presented to the emergency department complaining of not feeling well. She reports that she has not been using insulin pump for a day or two, because she noticed an infection with some pus coming from the area where the insulin pump was placed. So, she can she needed to change it today. She reports some nausea and vomiting, not eating very well. Here in the emergency department, she was found to have elevated blood sugar of 752, with elevated anion gap and acute kidney injury, so she is going to be admitted for further evaluation and treatment. PAST MEDICAL HISTORY: 1. Diabetes mellitus type 1. She was initially diagnosed in her late 20s. She is using an insulin pump. Dr. Lucio Latham is her doctor who is managing pump. She had been admitted here for the same condition 20 days ago. 2. History of melanoma. 3. Hypertension. 4. Gastroesophageal reflux disease. 5. Diabetic neuropathy. 6. Frequent UTIs. PAST SURGICAL HISTORY: 1. Melanoma of the back removed. 2. Tonsillectomy and adenoidectomy. 3. Lumbar surgery x2. 4. Breast reduction. 5. Hysterectomy. 6. Cholecystectomy. SOCIAL HISTORY: Patient used to smoke 1 to 2 packs per day. She has been smoking for many years. She denies using any alcohol or using any illicit drugs. Patient lives with parents. She is a . FAMILY HISTORY: Daughter with seizures. The patient's mother has osteoarthritis and hypertension. Father has diabetes mellitus type 2. ALLERGIES: Patient is allergic to Levaquin and Phenergan. REVIEW OF SYSTEMS: Eleven systems were reviewed and all symptoms are related to H P. PHYSICAL EXAMINATION: GENERAL: Temperature 98.0 degrees, heart rate 98, respiratory rate 19, blood pressure 114/62, O2 saturation 100% on room air. GENERAL: This is a chronically ill-appearing, 53-year-old, female, lying in bed, in no acute distress. HEENT: Head is normocephalic, atraumatic. Mucous membranes very dry. Pupils equal, round, and reactive to light and accommodation. NECK: No JVD noted. No carotid bruit. No lymphadenopathy. No thyromegaly. CARDIOVASCULAR: S1, S2 heard. No murmurs, gallops, or rubs. Regular rate and rhythm. RESPIRATORY: Clear bilaterally to auscultation. No work of breathing. ABDOMEN: Soft. Insulin pump noted just in the infraumbilical area. I do see an area that is red around the umbilical area, but no drainage coming out. No signs of peritoneal irritation. EXTREMITIES: No clubbing, cyanosis, or edema. Peripheral pulses present in both legs. NEUROLOGICAL: Patient is alert and oriented x3. LABORATORY DATA: White cell count 13.34, hemoglobin 14.6, hematocrit 44.6, platelets 272,000. ABG shows pH of 20 with pCO2 of 21, PO2 of 95. Sodium 133, potassium 5.9, creatinine 2.0 with glucose 752. Hemoglobin A1c is still pending. ASSESSMENT: 1. Diabetic ketoacidosis. 2. Acute kidney injury. 3. Severe dehydration. 4. Uncontrolled diabetes mellitus type 2. 5. Hypertension. PLAN: At this point, the patient is going to be admitted to the PVC unit. We will start insulin drip. We will keep checking BMP every 4 hours. We will adjust the doses of intravenous insulin infusion. For DANICA, we will start with aggressive IV fluid resuscitation. For hyperkalemia, I do not think we need to do anything because the insulin is going to drop the potassium. Because patient reports a skin infection, although I do not see any obvious infection, except some erythematous area around the umbilical area. I will start Zosyn because of the elevated white cell count and will continue to monitor this patient closely. We will continue with home medications for diabetic neuropathy and gastroesophageal reflux disease. cc: Jatinder Murphy MD MTDD
[2019-06-06 19:32] LABS: BILIRUBIN URINE NEGATIVE (NEGATIVE); BLOOD URINE NEGATIVE (NEGATIVE); CLARITY CLEAR (CLEAR); COLOR YELLOW; KETONE URINE 3+(Large) mg/dL (NEGATIVE); LEUKOCYTES URINE NEGATIVE (NEGATIVE); NITRITE URINE NEGATIVE (NEGATIVE); PROTEIN URINE TRACE mg/dL (NEGATIVE); SP GRAVITY URINE 1.015; UROBILINOGEN URINE NORMAL
[2019-06-06 19:33] LABS: URINE SOURCE CATH
[2019-06-06 19:35] LABS: URINE BACTERIA NEGATIVE /HFP; URINE CAST NONE SEEN /LPF; URINE CRYSTAL NONE SEEN /HPF; URINE EPITHELIAL CELLS <10 /HPF (<10); URINE RBC <10 /HPF (<10); URINE WBC <10 /HPF (<10); URINE YEAST NONE SEEN /HPF
[2019-06-06] MEDS: ZOSYN 2.25 GM in NS 50 ML IV SCH (20:00)
[2019-06-06 20:15] LABS: BE -9.2 mmoll (-3.0-3.0); BLOOD TYPE ARTERIAL; HCO3-(ACT) 17.6 mmoll (20.0-26.0); O2(CT) 18.2 mL/dL (15.0-23.0); PCO2(98.6) 29 mmHg (35-45); PO2(98.6) 77 mmHg (60-100); SAMPLE BLOOD; SAO2 95.3 % (95.0-100.0); THB 13.9 g/dL (11.5-17.4); pH(98.6) 7.33 (7.35-7.45)
[2019-06-06 20:16] LABS: MODALITY ROOM AIR
[2019-06-06 20:17] LABS: ALLEN TEST YES
[2019-06-06] MEDS: NEURONTIN PO SCH (21:00)
[2019-06-06] MEDS: EFFEXOR PO SCH (21:00)
[2019-06-06] MEDS: ROBAXIN PO SCH (21:00)
[2019-06-06 22:09] LABS: CALCIUM 9.9 mg/dL (8.8-10.2); CREATININE 1.5 mg/dL (0.5-0.9); PHOSPHORUS 2.4 mg/dL (2.7-4.5); POTASSIUM 4.5 mmol/L (3.5-5.1)
[2019-06-07] MEDS: NEURONTIN PO SCH ×3 (00:11→20:45)
[2019-06-07] MEDS: POTASSIUM CHLORIDE 10% LIQUID PO PRN ×2 (00:11→03:45)
[2019-06-07] MEDS: ROBAXIN PO SCH ×3 (00:12→20:45)
[2019-06-07] MEDS: ZOSYN 2.25 GM in NS 50 ML IV SCH ×5 (00:12→22:28)
[2019-06-07 00:29] LABS: BLOOD TYPE ARTERIAL; SAMPLE BLOOD
[2019-06-07 00:30] LABS: HCO3-(ACT) 21.7 mmoll (20.0-26.0); METHB 0.7 % (0.0-1.5); O2(CT) 17.5 mL/dL (15.0-23.0); O2HB 92.2 % (95.0-99.0); PCO2(98.6) 37 mmHg (35-45); PO2(98.6) 69 mmHg (60-100); SAO2 94.3 % (95.0-100.0); THB 13.5 g/dL (11.5-17.4); pH(98.6) 7.36 (7.35-7.45)
[2019-06-07 00:32] LABS: ALLEN TEST NO; MODALITY CANNULA
[2019-06-07 02:22] LABS: CALCIUM 9.7 mg/dL (8.8-10.2); CREATININE 1.3 mg/dL (0.5-0.9); MAGNESIUM 1.8 mg/dL (1.5-2.7); PHOSPHORUS 2.1 mg/dL (2.7-4.5); POTASSIUM 4.8 mmol/L (3.5-5.1)
[2019-06-07] MEDS: NS 1,000 ML IV SCH ×5 (03:25→22:28)
[2019-06-07] MEDS: PRILOSEC PO SCH (06:05)
--- NOTE | 2019-06-07 06:21 | EKG Report ---
Test Performed on : 06/07/2019 06:01:52 AM Test Reason : on dka protocol Blood Pressure : / mmHG Vent. Rate : 076 BPM Atrial Rate : 076 BPM P-R Int : 116 ms QRS Dur : 074 ms QT Int : 384 ms P-R-T Axes : 047 -07 -48 degrees QTc Int : 432 ms Normal sinus rhythm. Possible Left atrial enlargement T wave abnormality, consider inferior ischemia T wave abnormality, consider anterolateral ischemia Abnormal ECG When compared with ECG of 17-MAY-2019 13:17, (Unconfirmed) T wave inversion now evident in Inferior leads T wave inversion now evident in Anterolateral leads Unconfirmed Result
[2019-06-07 06:32] LABS: BASO# 0.05 X1000 (0.0-0.2); BASO% 0.6 % (0.0-0.8); EOS# 0.13 X1000 (0.0-0.7); EOS% 1.5 % (0.0-10.0); HEMATOCRIT 39.3 % (37.0-47.0); HEMOGLOBIN 12.7 g/dL (12.0-16.0); IMM GRAN# 0.01 X1000 (0.0-0.04); IMM GRAN% 0.1 % (0.0-0.5); LYMPH# 1.84 X1000 (1.2-3.4); LYMPH% 21.4 % (20.5-51.1); MCH 31.4 PG (27-31); MCHC 32.3 g/dL (33-37); MONO# 0.74 X1000 (0.11-0.59); MONO% 8.6 % (1.7-9.3); MPV 11.2 FL (7.4-10.4); NEUT# 5.82 X1000 (1.4-6.5); NEUT% 67.8 % (42.2-75.2); PLT 226 X1000 (130-400); RBC 4.05 XMIL (4.2-5.4); RDW 13.5 % (11.5-14.5); WBC 8.59 X1000 (4.8-10.8)
[2019-06-07 06:39] LABS: CALCIUM 9.8 mg/dL (8.8-10.2); CREATININE 1.2 mg/dL (0.5-0.9); PHOSPHORUS 2.3 mg/dL (2.7-4.5); POTASSIUM 4.5 mmol/L (3.5-5.1)
[2019-06-07] MEDS: LOVENOX SUBQ SCH (09:32)
[2019-06-07] MEDS: EFFEXOR PO SCH ×2 (09:32→20:46)
[2019-06-07] MEDS: COZAAR PO SCH (09:32)
--- NOTE | 2019-06-07 10:07 | PROGRESS NOTE ---
DATE: 06/07/2019 SUBJECTIVE: Patient is more awake and alert. The patient reports feeling hungry. Her labs are much better today. No issues noted as per nursing staff overnight. OBJECTIVE: Vital Signs: Temperature 98.1 degrees, heart rate 75, respiratory 16, blood pressure 123/59, O2 saturation 96% on room air. General: A chronically ill-appearing and looking older than her stated age 53-year-old female, lying in bed, in no acute distress. Cardiovascular: S1, S2 heard. No murmurs, gallops, or rubs. Regular rate and rhythm. Respiratory: Clear bilaterally to auscultation. No work of breathing or using accessory muscles. Abdomen: Soft, nontender to palpation. Bowel sounds present. No organomegaly. Extremities: No clubbing, cyanosis, or edema. Peripheral pulses present in both legs. Neurological: Patient alert and oriented x3. Moves all 4 extremities. Skin: There is an area of induration and redness near to the periumbilical area. LABORATORY DATA: White cell count 8.59, hemoglobin 12.7, hematocrit 39.3, platelets 226,000. ABG shows pH 7.36 with pCO2 35, PO2 69. BMP shows creatinine 1.2 with glucose of 123 and an A1c 12.9. ASSESSMENT: 1. Diabetic ketoacidosis. 2. Uncontrolled diabetes mellitus. 3. Acute kidney injury. 4. Hypertension. 5. Skin infection. PLAN: At this point, patient, after 24 hours being on an insulin drip, her labs are much better. At this point, we are going to discontinue insulin drip. We will start Lantus [address] We will place this patient on sliding scale insulin. We will continue with Zosyn for skin infection. We will continue with IV fluids for acute kidney injury, that definitely is much better. For blood pressure, we will continue basically with home medications. DISPOSITION: We will transfer this patient out of the intensive care unit today. cc: Jatinder Murphy MD MTDD
[2019-06-07] MEDS: LANTUS INSULIN SUBQ SCH ×2 (10:25→21:19)
[2019-06-07] MEDS: HUMALOG (PARKWAY) SUBQ SCH ×3 (11:05→21:19)
[2019-06-07 14:56] LABS: ALBUMIN 3.3 g/dL (3.5-5.0); CALCIUM 9.4 mg/dL (8.8-10.2); PHOSPHORUS 1.7 mg/dL (2.7-4.5); POTASSIUM 4.8 mmol/L (3.5-5.1)
[2019-06-08] MEDS: ZOSYN 2.25 GM in NS 50 ML IV SCH ×2 (06:21→11:11)
[2019-06-08] MEDS: PRILOSEC PO SCH (06:21)
[2019-06-08] MEDS: HUMALOG (PARKWAY) SUBQ SCH ×2 (06:21→11:11)
[2019-06-08 06:47] LABS: BASO# 0.06 X1000 (0.0-0.2); BASO% 1.1 % (0.0-0.8); EOS# 0.24 X1000 (0.0-0.7); EOS% 4.3 % (0.0-10.0); HEMATOCRIT 36.9 % (37.0-47.0); HEMOGLOBIN 11.7 g/dL (12.0-16.0); IMM GRAN# 0.01 X1000 (0.0-0.04); IMM GRAN% 0.2 % (0.0-0.5); LYMPH# 1.47 X1000 (1.2-3.4); LYMPH% 26.2 % (20.5-51.1); MCHC 31.7 g/dL (33-37); MCV 97.9 FL (81-99); MONO# 0.47 X1000 (0.11-0.59); MONO% 8.4 % (1.7-9.3); MPV 10.7 FL (7.4-10.4); NEUT# 3.36 X1000 (1.4-6.5); NEUT% 59.8 % (42.2-75.2); PLT 198 X1000 (130-400); RBC 3.77 XMIL (4.2-5.4); RDW 13.7 % (11.5-14.5); WBC 5.61 X1000 (4.8-10.8)
[2019-06-08 07:35] LABS: AGAP 8; ALBUMIN 3.1 g/dL (3.5-5.0); BUN 11 mg/dL (8-22); CALCIUM 8.8 mg/dL (8.8-10.2); CHLORIDE 109 mmol/L (98-107); COSMO 284; CREATININE 0.8 mg/dL (0.5-0.9); ESTIMATED GFR > 60; GLUCOSE 159 mg/dL (70-104); PHOSPHORUS 2.2 mg/dL (2.7-4.5); POTASSIUM 3.8 mmol/L (3.5-5.1); SODIUM 141 mmol/L (136-145); TCO2 25 mmol/L (25-35)
[2019-06-08] MEDS ORDERED: SODIUM PHOSPHATE 35 MMOL in NS 250 ML IV ONE (08:30)
[2019-06-08] MEDS: LOVENOX SUBQ SCH (08:48)
[2019-06-08] MEDS: ROBAXIN PO SCH (08:48)
[2019-06-08] MEDS: NEURONTIN PO SCH (08:48)
[2019-06-08] MEDS: COZAAR PO SCH (08:48)
[2019-06-08] MEDS: LANTUS INSULIN SUBQ SCH (08:48)
[2019-06-08] MEDS: EFFEXOR PO SCH (08:49)
[2019-06-08 14:19] VITALS: BP 143/78
--- NOTE | 2019-06-09 05:19 | DISCHARGE SUMMARY ---
ADMISSION DATE: 06/06/2019 DISCHARGE DATE: 06/08/2019 ADMISSION DIAGNOSES: 1. Diabetic ketoacidosis. 2. Acute kidney injury. 3. Severe dehydration. 4. Uncontrolled diabetes mellitus type 2. 5. Hypertension. DISCHARGE DIAGNOSES: 1. Diabetic ketoacidosis, resolved. 2. Uncontrolled diabetes mellitus. 3. Acute kidney injury, resolved. 4. Hypertension. 5. Skin infection. CONSULTATIONS: None. SURGERIES AND PROCEDURES: None. HOSPITAL COURSE: Helen Awan is a 53-year-old female presented to [facility] ER with complaints of recurrent DKA. She actually had had DKA just 20 days prior to this admission, just not feeling well. Apparently, she had not been using her insulin pump for a day or 2. Noticed an infection with some sort of pus coming from the area where the insulin pump was placed. She had some nausea and vomiting, and not eating well. In the Emergency Department, her blood glucose level was 752, elevated anion gap, and acute kidney injury. She was admitted to the ICU for treatment of DKA, started on the protocol, given IV fluids and insulin drip. Frequent electrolyte checks. She stayed in the ICU for at least 2 nights. She was transitioned to a sliding scale insulin. She was started on Lantus 50 units twice a day. She was on Zosyn for the skin infection. Acute kidney injury resolved. Her antibiotic is going to be Augmentin. DISCHARGE VITAL SIGNS: Temperature 97.8 degrees, heart rate 86, respiratory rate 19, blood pressure 143/78, and O2 saturation 95% on room air. LABORATORY DATA: White blood cells 5000, hemoglobin 11, hematocrit 36, and platelet count 198,000. Sodium 141, potassium 3.8, BUN 11, creatinine 0.8 and glucose 159. Phosphorus was 2.2. Albumin was 3.1. PERTINENT IMAGING: Chest x-ray shows nothing acute. She had an EKG that showed normal sinus rhythm. Rate was 76. QTc was 432. DISCHARGE DIET: Diabetic. DISCHARGE ACTIVITY: As tolerated. DISCHARGE MEDICATIONS: 1. Augmentin 1 tablet p.o. twice a day for 10 days. 2. Lantus 15 units subcutaneous twice a day. PHYSICIAN FOLLOWUP: Dr. Lucio Latham. DISCHARGE INSTRUCTIONS: She will need to follow up with her primary in about 1 to 2 weeks. If her condition changes, contact her physician and/or return to the emergency department. Changes were made clear but are not limited to, shortness of breath, increased excessive bleeding, unexplained weight loss or gain, unmanageable pain, signs or symptoms of infection. DISCHARGE DISPOSITION: Home. Dictated by JONATHAN Mcconnell for Jatinder Murphy MD Addendum: Patient seen and examined by myself. Agree with JONATHAN note. It reflects my assessment and plan. Patient is being discharged in stable condition. Will be seen by PCP in a week. cc: JONATHAN Mcconnell MD [facility]
--- NOTE | 2019-06-12 10:07 | PROVIDER DOCUMENTATION ---
This chart was entered by Shruti Summers Scribe, acting as scribe for Meghan Smith MD. HPI-General Adult - General Chief Complaint: High Blood Sugar Stated Complaint: HIGH / LOW BS Time Seen by Provider: 06/06/19 15:13 Source: patient Allergies/Adverse Reactions: Patient Allergies Allergy/AdvReac Type Severity Reaction Status Date / Time levofloxacin [From Levaquin] Allergy Intermediate ITCHING Verified 06/06/19 15:38 promethazine HCl * AdvReac Intermediate AGITATION Verified 06/06/19 15:38 [From Phenergan] Home Medications: Home Medication List Medication Instructions Recorded Confirmed Last Taken Type Losartan [Cozaar] 50 mg PO DAILY 07/31/16 05/17/19 01/30/17 19:00 History 50 MG Gabapentin 600 mg PO BID 01/31/17 05/17/19 01/30/17 19:00 History 600 MG Venlafaxine [Effexor] 75 mg PO BID 01/31/17 05/17/19 01/30/17 19:00 History 100 MG Pantoprazole [Protonix] 40 mg PO DAILY #60 tab 06/08/18 05/17/19 Unknown Rx Acetaminophen [Tylenol] 650 mg PO Q4H PRN PRN 04/12/19 05/17/19 Unknown History Methocarbamol [Robaxin-750] 750 mg PO BID 04/12/19 05/17/19 Unknown History Amoxicillin/Potassium Clav 1 tab PO BID #20 tab 06/08/19 Unknown Rx [Amox-Clav 875-125 mg Tablet] Insulin Glargine [Lantus Insulin] 15 unit SUBQ BID #5 unit 06/08/19 Unknown Rx - History of Present Illness -Gen Adult Nature of Presenting Problems: 53yof presents to ED cc high blood sugar greater than 500, nausea, vomiting and weakness. Pt reports she wears an insulin pump and puts 3cc in pump but is unsure how the pump actually works. Pt was hospitalized with DKA on 05/17/19. Pt denies chest pain or SOB. Pt is lethargic upon exam. Location of Pain/Injury: reports: generalized Quality of Pain: reports: aching Severity: reports: moderate Onset/Duration: reports: last night Timing: reports: still present Context/Activities at Onset: reports: light activity Modifying Factors: improves with: nothing Associated Symptoms: reports: fatigue, nausea, vomiting, weakness Similar Symptoms Previously?: Yes Recently seen or treated by another doctor?: Yes (hospitalized w/DKA 05/17/19) - Diabetes Related Context Context: reports: high blood sugar, prior DKA hospitalization Review of Systems - Adult - REVIEW OF SYSTEMS - ADULT Constitutional: reports: see HPI, fatique. denies: chills, fever Eyes: reports: no symptoms reported Ears, Nose, Mouth & Throat: reports: no symptoms reported Cardiovascular: reports: see HPI. denies: chest pain Respiratory: reports: see HPI. denies: cough, shortness of breath Gastrointestinal: reports: see HPI, nausea, vomiting Genitourinary: reports: no symptoms reported Musculoskeletal: reports: no symptoms reported Integumentary: reports: no symptoms reported Neurological: reports: no symptoms reported Psychiatric: reports: no symptoms reported Endocrine: reports: see HPI, other (high blood sugar) Hematologic/Lymphatic: reports: no symptoms reported Allergic/Immunologic: reports: no symptoms reported All Other Systems: Reviewed and Negative Past History - Adult - PAST MEDICAL HISTORY-ADULT Review of Records: reports: Nursing Assessment Review, Medications Reviewed, Social history reviewed & non-contributory. Major Childhood Illnesses: reports: denies history Cardiovascular: reports: HTN Respiratory: reports: denies history Gastrointestinal: reports: GERD Obstetrical/Gynecological: reports: denies history Genitourinary: reports: denies history Musculoskeletal: reports: denies history Neurological: reports: other (neuropathy). denies: cancer/tumor, dementia, Chevak's Disease, meningitis, past injury Psychiatric: reports: depression Endocrine/Immune: reports: Diabetes Other Conditions: reports: other cancer (melanoma) - PRIOR SURGERIES/PROCEDURES Surgical/Procedure History: reports: appendectomy, cholecystectomy, hysterectomy , tonsillectomy, breast, other (bladder sling) - IMMUNIZATION STATUS Childhood Immunizations: See Nurse Assessment Flu Vaccine: See Nurse Assessment - FAMILY HISTORY Family History: reviewed, not pertinent - SOCIAL HISTORY Smoking: cigarettes, greater than 1 pack/day Physical Exam-General - PHYSICAL EXAM-ADULT Initial Vital Signs Reviewed: Yes - CONSTITUTIONAL General Appearance: mild distress, lethargic, slow to respond. negative: anxious, combative - EYES Eyes: PERRL/EOMI, pink conjunctivae. negative: photophobia - HEAD, EARS, NOSE, MOUTH & THROAT HENMT: normocephalic/atraumatic. negative: moist mucous membranes (dry), angioedema - RESPIRATORY Respiratory: chest non-tender, lungs clear, normal breath sounds. negative: wheezing - CARDIOVASCULAR Cardiovascular: normal peripheral pulses, regular rate, rhythm. negative: bradycardia, tachycardia - GASTROINTESTINAL (ABDOMEN) Abdominal Exam: normal bowel sounds, non tender, soft. negative: rebound - MUSCULOSKELETAL Extremity: normal inspection. negative: deformity - SKIN Integumentary: normal color. negative: diaphoresis, jaundice - PSYCHIATRIC Psych/Mental Status: normal mood/affect, oriented x 3. negative: anxious, disheveled Progress - PLAN OF CARE/RESULTS Progress/Plan/Lab Results: Vital Signs - 8 hr 06/06/19 15:05 Temperature 98 F Pulse Rate 95 H Respiratory Rate 18 Blood Pressure 124/65 O2 Sat by Pulse Oximetry 100 Laboratory Results - last 24 hr 06/06/19 15:09 POC Glucose 500 H D Orders Category Date Time Status Cardiac Monitoring DIRECTED Care 06/06/19 15:11 Active FSBS [Finger Stick Blood Sugar (ED)] DIRECTED Care 06/06/19 15:12 Active FSBS/Accucheck Result Q1H Care 06/06/19 15:11 Active Intake and Output-Strict ORDERED Care 06/06/19 15:11 Active Notify physician if: ORDERED Care 06/06/19 15:11 Active Saline Loc NOW Care 06/06/19 15:11 Active Use DKA Protocol (paper) ORDERED Care 06/06/19 15:11 Active Vital Signs Order ROUTINE Care 06/06/19 15:11 Active ABG [RESP] Routine Lab 06/06/19 15:11 Ordered ABG [RESP] Routine Lab 06/06/19 15:12 Ordered ACETONE SERUM [CHEM] Stat Lab 06/06/19 15:11 Ordered ACETONE SERUM [CHEM] Stat Lab 06/06/19 15:12 Ordered AMYLASE [CHEM] Stat Lab 06/06/19 15:12 Ordered BASIC METABOLIC PANEL [CHEM] Q4H Lab 06/06/19 15:15 Ordered BASIC METABOLIC PANEL [CHEM] Q4H Lab 06/06/19 19:15 Ordered BASIC METABOLIC PANEL [CHEM] Q4H Lab 06/06/19 23:15 Ordered CBC WITH DIFF [HEME] Stat Lab 06/06/19 15:11 Ordered CBC WITH NO DIFF [HEME] Stat Lab 06/06/19 15:12 Ordered CK PROFILE [SP CHEM] Stat Lab 06/06/19 15:12 Ordered COMPREHENSIVE METABOLIC PANEL [CHEM] Stat Lab 06/06/19 15:11 Uncollected COMPREHENSIVE METABOLIC PANEL [CHEM] Stat Lab 06/06/19 15:12 Uncollected LACTATE, PLASMA [CHEM] Stat Lab 06/06/19 15:12 Uncollected LIPASE [CHEM] Stat Lab 06/06/19 15:12 Uncollected MAGNESIUM [CHEM] Stat Lab 06/06/19 15:12 Uncollected PHOSPHORUS [CHEM] Stat Lab 06/06/19 15:12 Ordered TROPONIN T Stat Lab 06/06/19 15:[address] W/POSS RFLX CULT [URINALYSIS] Stat Lab 06/06/19 15:11 Uncollected URINE DRUG SCREEN PL Stat Lab 06/06/19 15:12 Uncollected URINE DRUG SCREEN Stat Lab 06/06/19 15:12 Uncollected 0.9% Sodium Chloride Inj [Ns] 1,000 ml Med 06/06/19 15:23 Active IV 999 mls/hr Result Diagrams: 06/08/19 05:24 06/08/19 05:24 Departure - Departure Date of Disposition Decision: 06/06/19 Time of Disposition Decision: 17:45 DIAGNOSIS: DKA (diabetic ketoacidoses) Qualifiers: Diabetes mellitus type: other specified (including JERRY) Diabetes mellitus complication detail: without coma Qualified Code(s): E13.10 - Other specified diabetes mellitus with ketoacidosis without coma Disposition: HOME 01 Certified Medical Emergency: Emergent Condition: Stable - Critical Care Note This patient required my direct & personal management of CC.: Yes Total Time (mins): 31 Critical Care Statement: This patient required my direct personal management to treat or rule out processes, the absence of which, could potentiallly result in sudden, clinically significant life or limb threatening deterioration. Attestation - Physician/ SAHLY Attestation Patient care was provided by Advanced Practice Provider:: No The physician spent face to face time with patient:: Yes Advanced Practice Provider documentation review:: Supervising physician onsite and consulted in the evaluation and care of this patient. The physician did have a face to face encounter with the patient. This chart was documented by the indicated scribe, (Shruti Summers Scribe) and accurately reflects the services I performed and decisions made by me, Meghan Smith MD, as attested by the provider's signature.
== END 2019-06-08 14:39 | disposition home or self-care (01) | DRG 638 ==
LOC: P.ED 15:03 → P.ICU 15:04
PROVIDERS: ATTEND Internal Medicine